=== PATIENT | male | born 1980 | race Caucasian/White ===

== ENCOUNTER 2025-02-02 00:43 | Emergency (ER) | payer OTHER, SELFPAY ==
[2025-02-02] VITALS (8 sets, daily range): BP systolic 108–140; BP diastolic 63–96; BMI 22.4
--- NOTE | 2025-02-02 00:50 | ED.GENMED ---
History of Present Illness
General
Chief Complaint: Crisis Evaluation
Source: patient, records (302 report) and ambulance crew
Exam Limitations: altered mental status
Time Seen by Provider: 02/02/25 00:45
Nursing documentation reviewed up to this point in time: agreed with
History of Present Illness
History of Present Illness:
44-year-old male brought in for psychiatric evaluation under 302
Patient apparently suffers from bipolar disorder here pressured speech, he is disorganized,
Denies any drugs or alcohol
From my review of the 302 patient was in a facility in [place] apparently acting bizarrely with pressured speech left the facility for a few hours came back acting more bizarrely 302 was completed by staff member there
Patient apparently was making reference to harming himself
Past History
Past History
ED Past Medical History: Psychiatric
Social History
Tobacco: Non-smoker
Alcohol: None
Drug: None
Employment: Not employed
Review of Systems
Review of Systems
All Other Systems: Not applicable
Phy Exam
Physical Exam
Physical Exam:
Physical Exam
General: 44-year-old male pressured speech, disorganized,
Neck: No
Lungs: no acute respiratory distress.
Neuro: alert and oriented. no focal neurological deficits
Skin: no rash
Psychiatric: Pressured speech, disorganized agitated
Extremities: no edema.
Course
Orders/Labs/Results
Orders:
Orders
02/02/25 00:48
Haloperidol Lactate [Haldol] 5 mg IM NOW STA
Midazolam HCl [Versed] 5 mg IM NOW STA
02/02/25 00:50
Crisis Consult Urgent
Reason for Consult: 302
02/02/25 00:53
Acetaminophen Urgent
Alcohol Urgent
Complete Blood Count/With Diff Urgent
Comprehensive Metabolic Panel Urgent
Salicylate Urgent
Urine Drug Abuse Screen Urgent
02/02/25 01:11
Restraints - Violent As Directed
Restraint Type-: Locked-4 point/4 rails
Apply From (date): 02/02/25
Apply from (time): 01:12
Remove (date): 02/02/25
Remove (time): 05:12
02/02/25 01:12
1:1 Observation - Suicide/ Violent Behavior As Directed
Vital Signs
Initial and Last Documented VS:
Initial Vital Signs
Pulse Ox
99
02/02/25 01:00
Last Documented Vital Signs
Pulse Ox
99
02/02/25 01:00
MDM/Problems Addressed
Differential Diagnosis Includes:
Acute jarad, acute intoxication acute withdrawal doubt MOTEL MAID effect
MDM/Problems Addressed:
Agitation jarad
Chronic conditions affecting care: Psychiatric illness
Acute Exacerbation and/or Progression of Chronic Illness: Psychiatric illness
*Pulse Oximetry
SaO2: 99
Patient hypoxic: no
*Critical Care Note
Total Time (30-74mins, 75-104mins- exclusive of procedures): Not Applicable
Update Note
Update Note:
Update appears to be a psychiatric issue under 302, chemical and physical restraint for his and staff safety
302 upheld by myself,
ED Attending Note
-
Portions of this chart may have been created with voice recognition software.� Occasional wrong word or��sound alike� substitutions may have occurred due to the inherent limitations of voice recognition software.
Discharge Plan
Departure
Patient Disposition: Psych Facility
Date of Disposition: 02/02/25
Time of Disposition: 01:24
Patient with high blood pressure during this ER visit?: No
Condition: Good
Discharge Problem:
Acute jarad
Referrals:
UNKNOWN - PT NOT,INTERVIEWE [Family Provider]
Interventions
Interventions:
*Risk Screen - Suicide Last Done: 02/02/25 01:00
*General Assessment Last Done: 02/02/25 01:00
*Neglect/Abuse Screening Last Done: 02/02/25 01:00
*ED- Fall Risk Assessment Last Done: 02/02/25 01:00
*ED COVID-19 Vaccine History Last Done: 02/02/25 01:00
ED-Psychological Assessment Last Done: 02/02/25 01:06
Discharge Date and Time
Print Language: DIVEHI
[2025-02-02] MEDS: VERSED 5 MG IM ×2 (01:36→08:40)
[2025-02-02] MEDS: HALDOL 5 MG IM ×2 (01:37→08:40)
[2025-02-02 01:57] LABS: Hematocrit 36.1 % (39.0-52.0); Hemoglobin 12.7 g/dL (13.0-18.0); Mean Corp Hgb Conc. 35.2 g/dL (33.0-37.0); Mean Corpuscular Volume 84.9 fL (80.0-94.0); Nucleated Red Blood Cells % 0 % (-); Platelet Count 218 10^3/uL (130-400); Red Cell Dist. Width 11.8 % (11.5-14.5)
[2025-02-02 02:15] LABS: ALT (SGPT) 26 U/L (0-50); AST (SGOT) 36 U/L (17-59); Acetaminophen < 10 ug/ml (10-30); Albumin 4.2 g/dl (3.5-5.0); Alkaline Phosphatase 58 U/L (38-126); Blood Urea Nitrogen 25 mg/dl (9-20); Calcium 9.4 mg/dl (8.4-10.2); Carbon Dioxide 26 mmol/L (22-30); Chloride 108 mmol/L (98-107); Estimated Creatinine Clearance > 125 ml/min; Glucose 97 mg/dl (70-99); Potassium 4.1 mmol/L (3.5-5.1); Salicylate < 1.0 mg/dl (2.0-20.0); Sodium 140 mmol/L (135-145); Total Protein 6.5 g/dl (6.3-8.2); eGFR > 60.00
--- NOTE | 2025-02-02 11:36 | EDRN ---
Met with pt to introduce myself and pt appears to remain manic, asked pt for urine sample and pt is rambling on about having a 1 1/2 year old son who he named 'Brooke because I listen to Jim Bourgeois and you know a boy named Donna? Yeah so that's the
ingredients for that special sauce... you make the whopper and plop, the sauce it on it!'
Pt has an order for an ankle xray, at this time pt appears to benefit form a portable image taken at bedside. Xray called and will be over to xray pts ankle. Pt unable to void at this time, will check back for sample later.
== END 2025-02-02 13:03 ==
LOC: EMR 00:43
PROVIDERS: EMERGENCY PHYSICIAN Emergency Medicine
DX: F30.9 Manic episode, unspecified (principal)
CPT/HCPCS: 99285; 96372 ×4; 73610; 80053; 80143; 80179; 80306; 82077; 85025